=== PATIENT | female | born 1975 | race Caucasian/White ===

== ENCOUNTER 2018-02-04 05:30 | Outpatient (CLI) | payer OTHER ==
[~2018-02-04] VITALS: Ht 170.2 cm; Wt 74.8 kg
== END 2018-02-04 13:01 ==
LOC: PREOP 05:30
PROVIDERS: ATTEND Otolaryngology Otolaryngology/Facial Plastic Surgery
DX: Z01.818 Encounter for other preprocedural examination (principal)

== ENCOUNTER 2018-02-11 06:15 | Day surgery (SDC) | payer OTHER ==
[~2018-02-11] VITALS: Ht 170.2 cm; Wt 74.8 kg
[2018-02-11] MEDS: LACTATED RINGERS 1,000 ML IV PRN ×2 (06:40→09:15)
[2018-02-11 06:56] LABS: BASOPHILS % (AUTO) 1 % (0-10); EOSINOPHILS # (AUTO) 0.1 10^3/uL (0.0-0.3); EOSINOPHILS % (AUTO) 2 % (0-10); HEMATOCRIT 41 % (35-52); HEMOGLOBIN 14.4 G/DL (11.5-16.0); LYMPHOCYTES # (AUTO) 1.6 X 10^3 (1.0-4.0); LYMPHOCYTES % (AUTO) 29 % (12-44); MEAN CORPUSCULAR HEMOGLOBIN 33 PG (25-34); MEAN CORPUSCULAR HGB CONC 35 G/DL (32-36); MEAN CORPUSCULAR VOLUME 94 FL (80-99); MEAN PLATELET VOLUME 10.4 FL (7.4-10.4); MONOCYTES # (AUTO) 0.4 X 10^3 (0.0-1.0); MONOCYTES % (AUTO) 8 % (0-12); NEUTROPHILS # (AUTO) 3.3 X 10^3 (1.8-7.8); NEUTROPHILS % (AUTO) 61 % (42-75); PLATELET COUNT 252 10^3/uL (130-400); RED BLOOD COUNT 4.38 10^6/uL (4.35-5.85); RED CELL DISTRIBUTION WIDTH 12.7 % (10.0-14.5); WHITE BLOOD COUNT 5.4 10^3/uL (4.3-11.0)
--- NOTE | 2018-02-11 06:58 | Progress Note-Pre Operative ---
Pre-Operative Progress Note H&P Reviewed The H&P was reviewed, patient examined and no changes noted. Date Seen by Provider: Feb 11, 2018 Time Seen by Provider: 06:45 Date H&P Reviewed: Feb 11, 2018 Time H&P Reviewed: 06:45 Pre-Operative Diagnosis: Cryptic Tonsils, Chronic Tons TRAMAINE GOODWIN MD Feb 11, 2018 6:57 am
[2018-02-11 07:00] VITALS: BP 120/79
[2018-02-11 07:13] LABS: BUN/CREATININE RATIO 17; CALCIUM 9.3 MG/DL (8.5-10.1); CARBON DIOXIDE 22 MMOL/L (21-32); CHLORIDE 107 MMOL/L (98-107); CREATININE SERUM 0.78 MG/DL (0.60-1.30); GFR ESTIMATED > 60; GLUCOSE 92 MG/DL (70-105); POTASSIUM 3.8 MMOL/L (3.6-5.0); SODIUM 140 MMOL/L (135-145)
[2018-02-11] MEDS ORDERED: FLUT9.9S NS (07:45)
[2018-02-11] MEDS ORDERED: MIDAZOLAM 2 MG/2 ML (VERSED) VIAL ONE (08:28)
[2018-02-11] MEDS ORDERED: fentaNYL INJECTION 100 MCG/2 ML AMP ONE (08:28)
[2018-02-11] MEDS ORDERED: DEXAMETHASONE 10 MG/ML (DECADRON) 1 ML VIAL ONE (09:22)
[2018-02-11] MEDS ORDERED: proPOfol 200 MG/20 ML (DIPRIVAN) VIAL IV ONE (09:22)
[2018-02-11] MEDS ORDERED: LIDOCAINE PF 2% 5 ML (XYLOCAINE) VIAL ONE (09:22)
[2018-02-11] MEDS ORDERED: SEVOFLURANE (ULTANE) 15 ML INHAL SOLN ONE (09:22)
[2018-02-11] MEDS ORDERED: ONDANSETRON 4 MG/2 ML (SDV) Z0FRAN ONE (09:22)
[2018-02-11] MEDS ORDERED: SUCCINYLCHOLINE INJ 100 MG/5 ML SYR ONE (09:22)
[2018-02-11] MEDS ORDERED: NS IV 1000 ML 1,000 ML IV SCH (09:25)
--- NOTE | 2018-02-11 09:25 | Progress Note-Post Operative ---
Post-Operative Progess Note Surgeon (s)/Automotive General Sales Manager (s) Surgeon TRAMAINE GOODWIN MD Automotive General Sales Manager n/a Pre-Operative Diagnosis Cryptic Tonsils, Chronic Tons Post-Operative Diagnosis same Post-Op Procedure Note Date of Procedure: Feb 11, 2018 Name of Procedure Performed: Tonsillectomy Description & Findings Description and Findings: n/a Anesthesia Type get Estimated Blood Loss minimal Packing none. Specimen(s) collected/removed tonsils TRAMAINE GOODWIN MD Feb 11, 2018 9:25 am
[2018-02-11] MEDS ORDERED: APAP 325 MG/10.15 ML LIQ (TYLENOL) UDC PO PRN (09:30)
[2018-02-11] MEDS ORDERED: HYDROcodone/APAP 7.5MG-325 MG/15 ML (LORTAB) UDC PO PRN (09:30)
[2018-02-11] MEDS ORDERED: morphine INJ 10 MG/ML 1ML (SYR OR VIAL) ONE (09:39)
[2018-02-11] MEDS: morphine INJ 10 MG/ML 1ML (SYR OR VIAL) IVP PRN ×2 (09:45→09:50)
[2018-02-11] MEDS ORDERED: ONDANSETRON 4 MG/2 ML (SDV) Z0FRAN IVP PRN (09:45)
[2018-02-11] MEDS ORDERED: DEXAINTSOL PO (09:52)
[2018-02-11] MEDS ORDERED: AMOX250S5 PO (09:52)
[2018-02-11] MEDS ORDERED: TETRACAINESUCKERS MT (09:52)
[2018-02-11] MEDS ORDERED: HYDR15SO8 PO (09:52)
[2018-02-11 10:25] VITALS: BP 122/89
--- NOTE | 2018-02-11 10:25 | Anesthesia-General Post-Op ---
General Patient Condition Mental Status/LOC: Same as Preop Cardiovascular: Satisfactory Nausea/Vomiting: Absent Respiratory: Satisfactory Pain: Controlled Complications: Absent Post Op Complications Complications None Follow Up Care/Instructions Patient Instructions None needed. Anesthesia/Patient Condition Patient Condition Patient is doing well, no complaints, stable vital signs, no apparent adverse anesthesia problems. No complications reported per nursing. D[place] per [facility]: Yes JADE MORALES CRNA Feb 11, 2018 10:25
[2018-02-11 10:55] VITALS: BP 128/89
[2018-02-11 11:25] VITALS: BP 131/87
[2018-02-11 12:15] VITALS: BP 131/87
== END 2018-02-11 12:30 | disposition home or self-care (01) ==
LOC: SDC 06:15
PROVIDERS: ATTEND Otolaryngology Otolaryngology/Facial Plastic Surgery
DX: J35.01 Chronic tonsillitis (principal); Z87.891 Personal history of nicotine dependence
CPT/HCPCS: 36415; 80048; 85025; 87081